=== PATIENT | male | born 1945 | race Caucasian/White ===

== ENCOUNTER 2017-06-01 08:45 | Day surgery (SDC) | payer MEDICARE, BC ==
[2017-06-01] MEDS ORDERED: Lactated Ringers 1,000 ML IV SCH (09:15)
[2017-06-01] MEDS ORDERED: fentaNYL 100 MCG/2 ML SDV ONE (09:30)
[2017-06-01] MEDS ORDERED: Propofol 200 MG/20 ML SDV ONE ×2 (09:30→11:04)
[2017-06-01] MEDS ORDERED: Midazolam 1 MG/ML 2 ML SDV ONE (09:30)
[2017-06-01] MEDS ORDERED: Ondansetron 4 MG/2 ML SDV ONE (10:15)
[2017-06-01] MEDS ORDERED: Dexamethasone 4 MG/ML SDV ONE (10:15)
[2017-06-01] MEDS ORDERED: Sodium Phosphate,Monobasic/Sodium Phosphate,Dibasic Enema 133 ML Bottle RECTAL ONE (10:16)
[2017-06-01] MEDS ORDERED: Lactated Ringers 1,000 ML IV ONE (11:56)
--- NOTE | 2017-06-02 09:29 | OR ---
DATE OF PROCEDURE: 06/01/2017 PREOPERATIVE DIAGNOSIS: Colon cancer screening. POSTOPERATIVE DIAGNOSIS: Unremarkable colonoscopy. PROCEDURE: Colonoscopy to the cecum. SURGEON: Pineda De Leon M.D. ANESTHESIA: IV anesthesia with monitored anesthesia care. INDICATION: This 72-year-old white male is referred for a colonoscopy for colon cancer screening. He says his last colonoscopic exam was done 10 years ago. I counseled him for the procedure, including risks and alternatives, and he gave his informed consent to proceed. DESCRIPTION OF PROCEDURE: The patient was placed in the left lateral decubitus position. IV anesthesia was administered by the Anesthesia Service. Time-out was held. A rectal exam was performed, which was unremarkable. The flexible video Olympus colonoscope was introduced through his anus, up his rectum, out his colon, all the way to the cecum. We encountered a lot of liquid and some solid stool. We aspirated as much of the liquid free as we could. The scope was plugged and had to be unplugged. Once the cecum was reached, it was noted that we could not go in all the way to remove all the fluid, but what was visualized appeared unremarkable. The scope was then slowly withdrawn, examining the mucosa throughout. No mucosal abnormalities were noted. The scope was retroflexed in the rectum with the distal rectum appearing unremarkable. The scope was straightened and removed. He tolerated the procedure well. Pineda De Leon MD /[id number]
== END 2017-06-01 13:10 | disposition home or self-care (01) ==
LOC: JP.SDS 08:45
PROVIDERS: ATTEND Surgery
DX: Z12.11 Encounter for screening for malignant neoplasm of colon (principal); I25.10 Atherosclerotic heart disease of native coronary artery without angina pectoris; E78.5 Hyperlipidemia, unspecified; I10 Essential (primary) hypertension
CPT/HCPCS: A9270; G0121; J1100; J2250; J2405; J2704; J3010; J7120

== ENCOUNTER 2021-09-21 10:14 | Emergency (ER) | payer MEDICARE ==
[2021-09-21] MEDS ORDERED: Bacitracin Oint 1 GM U/D Packet TOP ONE ×2 (10:45→10:46)
== END 2021-09-21 11:10 | disposition home or self-care (01) ==
LOC: JP.ED 10:14
DX: S41.112A Laceration without foreign body of left upper arm, initial encounter (principal); E78.00 Pure hypercholesterolemia, unspecified; I10 Essential (primary) hypertension; Z95.5 Presence of coronary angioplasty implant and graft; Z79.82 Long term (current) use of aspirin; Z79.02 Long term (current) use of antithrombotics/antiplatelets; Z79.899 Other long term (current) drug therapy; W18.30XA Fall on same level, unspecified, initial encounter
CPT/HCPCS: 99283

== ENCOUNTER 2023-09-15 06:18 | Day surgery (SDC) | payer MEDICARE ==
[2023-09-15] MEDS: Sodium Chloride 0.9% 10 ML Syringe FLUSH ONE (07:08)
== END 2023-09-15 08:20 | disposition home or self-care (01) ==
LOC: JP.SDS 06:18
PROVIDERS: ATTEND Ophthalmology
DX: H25.12 Age-related nuclear cataract, left eye (principal); I10 Essential (primary) hypertension; I25.10 Atherosclerotic heart disease of native coronary artery without angina pectoris
CPT/HCPCS: 66984; J3490; V2632

== ENCOUNTER 2023-09-29 07:47 | Day surgery (SDC) | payer MEDICARE ==
[2023-09-29] MEDS: Sodium Chloride 0.9% 10 ML Syringe FLUSH PRN (08:16)
== END 2023-09-29 09:34 | disposition home or self-care (01) ==
LOC: JP.SDS 07:47
PROVIDERS: ATTEND Ophthalmology
DX: H25.12 Age-related nuclear cataract, left eye (principal); I25.10 Atherosclerotic heart disease of native coronary artery without angina pectoris; I10 Essential (primary) hypertension
CPT/HCPCS: J3490; V2632

== ENCOUNTER 2024-11-08 09:20 | Emergency (ER) | payer MEDICARE | END 2024-11-08 11:30 | disposition home or self-care (01) | LOC: JP.ED 09:20 | DX: S00.03XA Contusion of scalp, initial encounter (principal); I25.10 Atherosclerotic heart disease of native coronary artery without angina pectoris; Z79.82 Long term (current) use of aspirin; Z79.02 Long term (current) use of antithrombotics/antiplatelets; Z79.899 Other long term (current) drug therapy; Z86.16 Personal history of COVID-19; X58.XXXA Exposure to other specified factors, initial encounter; Y93.89 Activity, other specified | CPT/HCPCS: 70450; 70450-26; 99283 ==